=== PATIENT | male | born 1945 | race Caucasian/White ===

== ENCOUNTER 2023-02-22 02:55 | Inpatient (IN) | payer OTHER ==
[2023-02-22] MEDS ORDERED: Ipratropium/Albuterol 3 ML NEB ONE (03:34)
[2023-02-22 04:03] LABS: Bilirubin Neg (Negative); Blood, Urine 25 (Negative); Clarity Clear (Clear); Glucose, Urine (Dipstick) >=1000 mg/dL (Negative); Ketone, Urine Negative (Negative); Leukocyte Negative (Negative); Nitrite Negative (Negative); Protein, Urine (Dipstick) 100 mg/dl (Neg-Trace); Urobilinogen Normal mg/dL (Less than 2); pH, Urine 6.5 (5.0-9.0)
[2023-02-22 04:31] LABS: Bacteria/HPF Rare-Few HPF (None Seen); CAUTI Indications for Culture Alt mental st,lethar; Squamous Epithelial 0-3 HPF (0-3)
[2023-02-22 04:37] LABS: Urine Culture Reflex No No
[2023-02-22] MEDS ORDERED: dilTIAZem 25 MG/5 ML VIAL ONE ×2 (04:42→05:53)
[2023-02-22 04:44] LABS: Actual Bicarbonate (HCO3a) 21.8 mEq/L (22-28); Base Excess (BEa) -7.6 mEq/L (-2.0 to +3.0); CO2 Tension 61.6 mmHg (35.0-45.0); Calcium, Ionized (arterial) 1.15 mmol/L (1.12-1.30); Carboxyhemoglobin (COHb) 0.6 gm% (0.0-3.0); Critical Notified By: CP.PH; Hematocrit-ABG 41 % (42.0-52.0); Hemoglobin (Hb) 13.9 g/dL (14.0-18.0); O2 Tension (PaO2), arterial 109.7 mmHg (> 70.0); Potassium - ABG Lab 4.04 mmol/L (3.70-5.30); Puncture Site LRA; RapidComm Collect By CP.PH; pH, Arterial 7.167 (7.35-7.45)
[2023-02-22 04:49] LABS: #Basophils 0.1 10x3/uL (0.0-0.2); #Monocytes 1.3 10x3/uL (0.0-1.1); #Neutrophils 19.7 10x3/uL (1.5-8.4); %Basophils 0.3 % (0.0-2.0); %Lymphocytes 7.2 % (18.0-47.0); %Monocytes 5.7 % (0.0-10.0); %Neutrophils 86.2 % (40.0-75.0); Hematocrit 42.2 % (38.8-50.0); Hemoglobin 13.2 g/dL (13.5-17.5); Mean Corpuscular HGB CONC 31.3 g/dL (32.0-36.0); Mean Corpuscular Hemoglobin 29.3 pg (27.0-33.0); Mean Corpuscular Volume 93.8 fl (81.2-95.1); Mean Platelet Volume 11.3 fl (7.4-10.4); Platelet Count 400 10x3/uL (150-450); RBC Distribution Width 12.7 % (11.5-14.5); White Blood Cell (WBC) Count 22.9 10x3/uL (3.5-10.5)
[2023-02-22 05:07] LABS: ALT (SGPT) 21 U/L (8-55); AST (SGOT) 39 U/L (5-34); Albumin 3.5 g/dL (3.4-4.8); Alkaline Phosphatase 86 U/L (40-110); Anion Gap 18 mmol/L (10-20); BUN (Urea Nitrogen) 21 mg/dL (8.4-25.7); Bilirubin, Total 0.3 mg/dL (0.2-1.2); Calc. Creatinine Clearance 0 mL/min (70-130); Calcium 8.2 mg/dL (7.8-10.44); Carbon Dioxide 20 mmol/L (23-31); Chloride 108 mmol/L (98-107); Estimated GFR 46; Globulin 3.4 g/dL (2.4-3.5); Glucose 389 mg/dL (83-110); Magnesium 2.8 mg/dL (1.6-2.6); Potassium 4.5 mmol/L (3.5-5.1); Protein, Total 6.9 g/dL (5.8-8.1); Sodium 141 mmol/L (136-145)
[2023-02-22] MEDS ORDERED: Cefepime 2 GM VIAL ONE (05:07)
[2023-02-22] MEDS ORDERED: Vancomycin 1 GM VIAL ONE (05:07)
[2023-02-22 05:11] LABS: SARS-CoV-2 NAA Rapid Test Not Detected (NotDetected)
[2023-02-22 05:13] LABS: Troponin I 0.284 ng/mL (< 0.028)
[2023-02-22] MEDS ORDERED: Vancomycin HCl 750 MG in Sodium Chloride 0.9% 250 ML 250 ML IVPB SCH (06:00)
[2023-02-22] MEDS ORDERED: dilTIAZem 125 MG in Sodium Chloride 0.9% 100 ML IVPB SCH (06:00)
[2023-02-22] MEDS ORDERED: Communication Order-Pharmacy FS ONE (06:25)
[2023-02-22] MEDS ORDERED: NOREPINEPHRINE 8 MG/250 ML-D5W 250 ML IVPB SCH (06:30)
[2023-02-22] MEDS ORDERED: Dextrose 5% in Water 1,000 ML IV PRN (06:35)
[2023-02-22] MEDS ORDERED: Glucagon 1 MG/ML KIT IM PRN (06:35)
[2023-02-22] MEDS ORDERED: Dextrose 50% Abboject 50 ML SYRINGE SLOW IVP PRN (06:35)
[2023-02-22 06:42] LABS: Actual Bicarbonate (HCO3a) 19.8 mEq/L (22-28); Base Excess (BEa) -9.8 mEq/L (-2.0 to +3.0); Calcium, Ionized (arterial) 1.15 mmol/L (1.12-1.30); Carboxyhemoglobin (COHb) 0.2 gm% (0.0-3.0); Critical Notified By: CP.PH; Hematocrit-ABG 39 % (42.0-52.0); Hemoglobin (Hb) 13.4 g/dL (14.0-18.0); O2 Tension (PaO2), arterial 145.8 mmHg (> 70.0); Potassium - ABG Lab 3.63 mmol/L (3.70-5.30); Puncture Site RRA; RapidComm Collect By CP.PH; pH, Arterial 7.136 (7.35-7.45)
[2023-02-22] MEDS ORDERED: dilTIAZem 125 MG, Admixture Fee 1 EACH in Sodium Chloride 0.9% 100 ML IVPB SCH (06:45)
[2023-02-22 07:28] LABS: Hematocrit 40.3 % (38.8-50.0); Hemoglobin 12.6 g/dL (13.5-17.5); Mean Corpuscular HGB CONC 31.3 g/dL (32.0-36.0); Mean Corpuscular Hemoglobin 30.2 pg (27.0-33.0); Mean Corpuscular Volume 96.6 fl (81.2-95.1); Mean Platelet Volume 11.5 fl (7.4-10.4); Platelet Count 351 10x3/uL (150-450); RBC Distribution Width 12.8 % (11.5-14.5); Red Blood Cell (RBC) Count 4.17 10x6/uL (4.32-5.72); White Blood Cell (WBC) Count 18.4 10x3/uL (3.5-10.5)
[2023-02-22 07:39] LABS: INR-International Normal Ratio 1.3; Prothrombin Time 14.1 sec (9.5-12.1)
[2023-02-22 07:41] LABS: Lactic Acid 4.2 mmol/L (0.5-2.2)
[2023-02-22 07:46] LABS: ALT (SGPT) 20 U/L (8-55); AST (SGOT) 47 U/L (5-34); Albumin 3.2 g/dL (3.4-4.8); Alkaline Phosphatase 85 U/L (40-110); Anion Gap 18 mmol/L (10-20); BUN (Urea Nitrogen) 20 mg/dL (8.4-25.7); Bilirubin, Total 0.2 mg/dL (0.2-1.2); Calc. Creatinine Clearance 0 mL/min (70-130); Carbon Dioxide 14 mmol/L (23-31); Chloride 113 mmol/L (98-107); Estimated GFR 48; Globulin 3.6 g/dL (2.4-3.5); Glucose 392 mg/dL (83-110); Potassium 3.9 mmol/L (3.5-5.1); Protein, Total 6.8 g/dL (5.8-8.1); Sodium 141 mmol/L (136-145)
[2023-02-22 07:55] LABS: Troponin I 1.081 ng/mL (< 0.028)
[2023-02-22] MEDS ORDERED: Propofol 1,000 MG/100 ML VIAL IV ONE (08:01)
[2023-02-22] MEDS: Propofol 1,000 MG/100 ML VIAL IV PRN (08:08)
[2023-02-22] MEDS ORDERED: FENTANYL 2,000MCG/100-0.9%NACL 100 ML IVPB SCH (08:15)
[2023-02-22] MEDS ORDERED: Propofol BOLUS 1,000 MG/100 ML VIAL IV PRN (08:15)
[2023-02-22] MEDS ORDERED: DISCONTINUE PREVIOUS NARCOTIC PAIN MEDICATIONS AND BENZODIAZEPINES FS SCH (08:15)
[2023-02-22] MEDS ORDERED: Lorazepam 2 MG/ML VIAL SLOW IVP PRN (08:15)
[2023-02-22] MEDS ORDERED: Morphine 2 MG/ML VIAL SLOW IVP PRN (08:15)
[2023-02-22] MEDS ORDERED: Fentanyl BOLUS 250 ML IVPB PRN (08:15)
[2023-02-22] MEDS: Lactated Ringer's 1,000 ML IV SCH ×2 (08:31→08:37)
[2023-02-22 08:32] LABS: MDiff Complete? YES
[2023-02-22] MEDS: Pantoprazole 40 MG VIAL IVP SCH (08:38)
[2023-02-22 08:41] LABS: Lymphocytes 3 % (21-51); Monocytes 3 % (0-10); Neutrophil 94 % (42-75)
[2023-02-22 08:43] LABS: Macrocytosis SLIGHT = 6-15 cells (100X) (0-5/hpf)
[2023-02-22 08:44] LABS: Platelet Adequacy Comment Appears Adequate
[2023-02-22] MEDS ORDERED: methylPREDNISolone Sod Succ 40 MG VIAL IVP SCH (09:00)
[2023-02-22] MEDS ORDERED: Arformoterol 15 MCG/2 ML NEB NEB SCH ×2 (09:00→18:30)
[2023-02-22] MEDS ORDERED: Ipratropium/Albuterol 3 ML NEB NEB SCH (10:30)
[2023-02-22 10:31] LABS: Troponin I 2.903 ng/mL (< 0.028)
[2023-02-22 10:42] LABS: Legionella Urinary Ag Negative (Negative); Strep pneumo Urine Ag NEGATIVE (NEGATIVE)
[2023-02-22] MEDS ORDERED: Insulin Regular 300 UNITS/3 ML VIAL SC SCH (11:00)
[2023-02-22] MEDS: LevoFLOXacin 750 mg/D5W 750 MG in Premix 1 BAG IVPB SCH (11:07)
[2023-02-22 11:37] LABS: Actual Bicarbonate (HCO3a) 14.4 mEq/L (22-28); Base Excess (BEa) -13.4 mEq/L (-2.0 to +3.0); CO2 Tension 40.3 mmHg (35.0-45.0); Calcium, Ionized (arterial) 1.15 mmol/L (1.12-1.30); Carboxyhemoglobin (COHb) 0.3 gm% (0.0-3.0); Hematocrit-ABG 36 % (42.0-52.0); Hemoglobin (Hb) 12.4 g/dL (14.0-18.0); O2 Tension (PaO2), arterial 211.2 mmHg (> 70.0); Potassium - ABG Lab 3.78 mmol/L (3.70-5.30); Puncture Site RRA; pH, Arterial 7.171 (7.35-7.45)
[2023-02-22 11:40] LABS: ALV-art Gradient 237.525 mmHg (0-20)
[2023-02-22 12:46] LABS: Troponin I 3.816 ng/mL (< 0.028)
[2023-02-22] MEDS ORDERED: Sodium Bicarbonate 150 MEQ, Admixture Fee 1 EACH in Dextrose 5% in Water 1,000 ML IV SCH ×2 (13:00)
[2023-02-22] MEDS ORDERED: Lantus 1000 UNITS/10 ML VIAL SC SCH (13:00)
[2023-02-22] MEDS: Ipratropium Bromide 2.5 ml Neb NEB SCH ×2 (13:45→19:32)
[2023-02-22] MEDS ORDERED: Cefepime 2 GM in Sodium Chloride 0.9% 100 ML IVPB SCH (14:00)
[2023-02-22] MEDS: Cefepime 2 GM in Sodium Chloride 0.9% 100 ML IVPB SCH (16:17)
[2023-02-22] MEDS: HumaLOG 300 UNITS/3 ML VIAL SC PRN ×2 (16:17→21:41)
[2023-02-23] MEDS: Propofol 1,000 MG/100 ML VIAL IV PRN (00:35)
[2023-02-23] MEDS: HumaLOG 300 UNITS/3 ML VIAL SC PRN ×3 (01:08→12:35)
[2023-02-23] MEDS: Ipratropium Bromide 2.5 ml Neb NEB SCH ×7 (02:15→23:10)
[2023-02-23 03:22] LABS: Hematocrit 31.9 % (38.8-50.0); Hemoglobin 10.2 g/dL (13.5-17.5); Mean Corpuscular Hemoglobin 29.7 pg (27.0-33.0); Mean Corpuscular Volume 92.7 fl (81.2-95.1); Mean Platelet Volume 12.2 fl (7.4-10.4); Platelet Count 312 10x3/uL (150-450); RBC Distribution Width 13.2 % (11.5-14.5); Red Blood Cell (RBC) Count 3.44 10x6/uL (4.32-5.72); White Blood Cell (WBC) Count 25.9 10x3/uL (3.5-10.5)
[2023-02-23 03:25] LABS: MDiff Complete? YES
[2023-02-23 03:41] LABS: Lactic Acid 2.1 mmol/L (0.5-2.2)
[2023-02-23 03:42] LABS: Platelet Adequacy Comment Appears Adequate; RBC Morph Comment Within Normal Limits
[2023-02-23 03:46] LABS: Band 10 % (5-11); Lymphocytes 5 % (21-51); Monocytes 10 % (0-10); Neutrophil 75 % (42-75)
[2023-02-23 03:49] LABS: ALT (SGPT) 26 U/L (8-55); AST (SGOT) 76 U/L (5-34); Albumin 3.1 g/dL (3.4-4.8); Alkaline Phosphatase 63 U/L (40-110); Anion Gap 14 mmol/L (10-20); BUN (Urea Nitrogen) 33 mg/dL (8.4-25.7); Bilirubin, Total 0.2 mg/dL (0.2-1.2); Calc. Creatinine Clearance 42 mL/min (70-130); Calcium 8.8 mg/dL (7.8-10.44); Carbon Dioxide 23 mmol/L (23-31); Chloride 111 mmol/L (98-107); Estimated GFR 35; Globulin 3.2 g/dL (2.4-3.5); Glucose 161 mg/dL (83-110); Potassium 3.7 mmol/L (3.5-5.1); Protein, Total 6.3 g/dL (5.8-8.1); Sodium 144 mmol/L (136-145)
[2023-02-23 04:32] LABS: Actual Bicarbonate (HCO3a) 25.7 mEq/L (22-28); Calcium, Ionized (arterial) 1.22 mmol/L (1.12-1.30); Carboxyhemoglobin (COHb) 0.3 gm% (0.0-3.0); Critical Notified By: Udy, RRT; Hematocrit-ABG 34 % (42.0-52.0); Hemoglobin (Hb) 11.5 g/dL (14.0-18.0); O2 Tension (PaO2), arterial 220.9 mmHg (> 70.0); Puncture Site LRA
[2023-02-23] MEDS: Cefepime 2 GM in Sodium Chloride 0.9% 100 ML IVPB SCH (05:54)
[2023-02-23] MEDS: VANCOMYCIN 1.25 GM/250 ML BAG 1.25 GM in Premix 1 BAG IVPB SCH (05:55)
[2023-02-23] MEDS ORDERED: Vancomycin 1.25 GM in Sodium Chloride 0.9% 250 ML 300 ML IVPB SCH (06:30)
[2023-02-23] MEDS ORDERED: Lactated Ringer's 1,000 ML IV SCH (08:00)
[2023-02-23] MEDS ORDERED: Aspirin Chewable 81 MG TAB PO SCH (08:00)
[2023-02-23] MEDS ORDERED: Carvedilol 3.125 MG TAB PO SCH (08:00)
[2023-02-23] MEDS: Pantoprazole 40 MG VIAL IVP SCH (08:23)
[2023-02-23 08:49] LABS: Troponin I 6.681 ng/mL (< 0.028)
[2023-02-23] MEDS: Lactated Ringer's 1,000 ML IV SCH ×2 (08:56→16:10)
[2023-02-23] MEDS: clonazePAM 0.5 MG TAB PO SCH ×2 (08:56→20:01)
[2023-02-23 10:33] LABS: ALV-art Gradient 141.275 mmHg (0-20); Actual Bicarbonate (HCO3a) 26.1 mEq/L (22-28); Base Excess (BEa) 0.3 mEq/L (-2.0 to +3.0); CO2 Tension 46.9 mmHg (35.0-45.0); Calcium, Ionized (arterial) 1.22 mmol/L (1.12-1.30); Carboxyhemoglobin (COHb) 0.3 gm% (0.0-3.0); Hematocrit-ABG 35 % (42.0-52.0); Hemoglobin (Hb) 11.8 g/dL (14.0-18.0); O2 Tension (PaO2), arterial 85.3 mmHg (> 70.0); Potassium - ABG Lab 4.08 mmol/L (3.70-5.30); Puncture Site LRA; pH, Arterial 7.363 (7.35-7.45)
[2023-02-23] MEDS ORDERED: Ipratropium/Albuterol 3 ML NEB EZPAP SCH (11:00)
[2023-02-23] MEDS ORDERED: Vancomycin Dose by Levels Sliding Scale (Wt 71-99) FS SCH (14:00)
[2023-02-23] MEDS: Cefepime 1 GM in Sodium Chloride 0.9% 100 ML IVPB SCH (16:10)
[2023-02-23] MEDS: Metoprolol Tartrate 50 MG TAB PO SCH (20:01)
[2023-02-23] MEDS: Atorvastatin Calcium 10 MG TAB PO SCH (20:01)
[2023-02-23] MEDS: Melatonin 3 MG TAB PO SCH (20:01)
[2023-02-23] MEDS: Nitroglycerin 2% Ointment 1 INCH/1 GM Packet TOP SCH (20:18)
[2023-02-24] MEDS: Lactated Ringer's 1,000 ML IV SCH (00:33)
[2023-02-24] MEDS: Ipratropium Bromide 2.5 ml Neb NEB SCH ×6 (03:31→23:15)
[2023-02-24 03:48] LABS: ALV-art Gradient 152.825 mmHg (0-20); Actual Bicarbonate (HCO3a) 23.9 mEq/L (22-28); Base Excess (BEa) -1.8 mEq/L (-2.0 to +3.0); CO2 Tension 44.3 mmHg (35.0-45.0); Calcium, Ionized (arterial) 1.24 mmol/L (1.12-1.30); Carboxyhemoglobin (COHb) 0.3 gm% (0.0-3.0); Hematocrit-ABG 32 % (42.0-52.0); Hemoglobin (Hb) 10.9 g/dL (14.0-18.0); Potassium - ABG Lab 4.22 mmol/L (3.70-5.30); Puncture Site LRA; pH, Arterial 7.349 (7.35-7.45)
[2023-02-24] MEDS: Cefepime 1 GM in Sodium Chloride 0.9% 100 ML IVPB SCH ×2 (04:28→16:12)
[2023-02-24 05:24] LABS: #Monocytes 1.7 10x3/uL (0.0-1.1); #Neutrophils 14.8 10x3/uL (1.5-8.4); %Basophils 0.2 % (0.0-2.0); %Lymphocytes 10.5 % (18.0-47.0); %Monocytes 9.1 % (0.0-10.0); %Neutrophils 79.4 % (40.0-75.0); Hematocrit 31.6 % (38.8-50.0); Hemoglobin 9.9 g/dL (13.5-17.5); Mean Corpuscular HGB CONC 31.3 g/dL (32.0-36.0); Mean Corpuscular Hemoglobin 29.9 pg (27.0-33.0); Mean Corpuscular Volume 95.5 fl (81.2-95.1); Mean Platelet Volume 11.5 fl (7.4-10.4); Platelet Count 289 10x3/uL (150-450); RBC Distribution Width 13.6 % (11.5-14.5); Red Blood Cell (RBC) Count 3.31 10x6/uL (4.32-5.72); White Blood Cell (WBC) Count 18.6 10x3/uL (3.5-10.5)
[2023-02-24 05:39] LABS: Vancomycin, Trough 15.2 ug/mL
[2023-02-24 05:40] LABS: Anion Gap 14 mmol/L (10-20); BUN (Urea Nitrogen) 51 mg/dL (8.4-25.7); Calc. Creatinine Clearance 44 mL/min (70-130); Calcium 8.9 mg/dL (7.8-10.44); Carbon Dioxide 22 mmol/L (23-31); Chloride 112 mmol/L (98-107); Estimated GFR 37; Glucose 144 mg/dL (83-110); Potassium 4.3 mmol/L (3.5-5.1); Sodium 144 mmol/L (136-145)
[2023-02-24] MEDS: VANCOMYCIN 1.25 GM/250 ML BAG 1.25 GM in Premix 1 BAG IVPB SCH (06:07)
[2023-02-24] MEDS: Nitroglycerin 2% Ointment 1 INCH/1 GM Packet TOP SCH ×2 (08:16→21:38)
[2023-02-24] MEDS: Pantoprazole 40 MG VIAL IVP SCH (08:16)
[2023-02-24] MEDS: Metoprolol Tartrate 50 MG TAB PO SCH ×2 (08:17→21:38)
[2023-02-24] MEDS: Aspirin Chewable 81 MG TAB PO SCH (08:17)
[2023-02-24 09:07] LABS: Actual Bicarbonate (HCO3a) 20.5 mEq/L (22-28); CO2 Tension 39.5 mmHg (35.0-45.0); Calcium, Ionized (arterial) 1.25 mmol/L (1.12-1.30); Carboxyhemoglobin (COHb) 0.3 gm% (0.0-3.0); Hematocrit-ABG 37 % (42.0-52.0); Hemoglobin (Hb) 12.5 g/dL (14.0-18.0); O2 Tension (PaO2), arterial 69.1 mmHg (> 70.0); Potassium - ABG Lab 4.16 mmol/L (3.70-5.30); Puncture Site RRA; pH, Arterial 7.332 (7.35-7.45)
[2023-02-24 09:10] LABS: ALV-art Gradient 166.725 mmHg (0-20)
[2023-02-24 09:38] LABS: Troponin I 11.475 ng/mL (< 0.028)
[2023-02-24] MEDS ORDERED: Furosemide 100 MG/10 ML VIAL SLOW IVP SCH (10:00)
[2023-02-24] MEDS: LevoFLOXacin 750 mg/D5W 750 MG in Premix 1 BAG IVPB SCH (10:28)
[2023-02-24] MEDS: clonazePAM 0.5 MG TAB PO SCH (10:28)
[2023-02-24] MEDS ORDERED: Furosemide 40 MG/4 ML VIAL SLOW IVP SCH ×2 (17:30→17:45)
[2023-02-24] MEDS ORDERED: Potassium Chloride 20 MEQ TAB PO SCH (17:45)
[2023-02-24] MEDS: Melatonin 3 MG TAB PO SCH (21:37)
[2023-02-24] MEDS: Atorvastatin Calcium 10 MG TAB PO SCH (21:38)
[2023-02-25] MEDS: HumaLOG 300 UNITS/3 ML VIAL SC PRN (00:43)
[2023-02-25] MEDS: Ipratropium Bromide 2.5 ml Neb NEB SCH ×6 (03:45→23:35)
[2023-02-25 04:18] LABS: Anion Gap 16 mmol/L (10-20); BUN (Urea Nitrogen) 49 mg/dL (8.4-25.7); Calc. Creatinine Clearance 52 mL/min (70-130); Calcium 9.7 mg/dL (7.8-10.44); Carbon Dioxide 28 mmol/L (23-31); Chloride 102 mmol/L (98-107); Estimated GFR 44; Glucose 132 mg/dL (83-110); Potassium 3.7 mmol/L (3.5-5.1); Sodium 142 mmol/L (136-145)
[2023-02-25 04:27] LABS: #Monocytes 1.4 10x3/uL (0.0-1.1); #Neutrophils 12.7 10x3/uL (1.5-8.4); %Basophils 0.1 % (0.0-2.0); %Eosinophils 0.2 % (0.0-6.0); %Lymphocytes 10.8 % (18.0-47.0); %Monocytes 8.6 % (0.0-10.0); %Neutrophils 79.7 % (40.0-75.0); Hematocrit 34.3 % (38.8-50.0); Mean Corpuscular HGB CONC 32.1 g/dL (32.0-36.0); Mean Corpuscular Hemoglobin 29.6 pg (27.0-33.0); Mean Corpuscular Volume 92.5 fl (81.2-95.1); Platelet Count 304 10x3/uL (150-450); RBC Distribution Width 13.2 % (11.5-14.5); Red Blood Cell (RBC) Count 3.71 10x6/uL (4.32-5.72)
[2023-02-25] MEDS: Cefepime 1 GM in Sodium Chloride 0.9% 100 ML IVPB SCH (06:16)
[2023-02-25] MEDS: Metoprolol Tartrate 50 MG TAB PO SCH ×2 (07:57→20:44)
[2023-02-25] MEDS: Aspirin Chewable 81 MG TAB PO SCH (07:57)
[2023-02-25] MEDS: Nitroglycerin 2% Ointment 1 INCH/1 GM Packet TOP SCH ×2 (07:59→20:44)
[2023-02-25] MEDS: Pantoprazole 40 MG VIAL IVP SCH (08:01)
[2023-02-25] MEDS: Apixaban 5 MG TAB PO SCH (20:44)
[2023-02-25] MEDS: Atorvastatin Calcium 10 MG TAB PO SCH (20:45)
[2023-02-25] MEDS: Melatonin 3 MG TAB PO SCH (20:45)
[2023-02-26] MEDS: HumaLOG 300 UNITS/3 ML VIAL SC PRN (00:43)
[2023-02-26 03:03] LABS: #Monocytes 1.2 10x3/uL (0.0-1.1); #Neutrophils 11.5 10x3/uL (1.5-8.4); %Basophils 0.1 % (0.0-2.0); %Eosinophils 0.3 % (0.0-6.0); %Monocytes 8.6 % (0.0-10.0); %Neutrophils 83.6 % (40.0-75.0); Hematocrit 37.4 % (38.8-50.0); Hemoglobin 11.7 g/dL (13.5-17.5); Mean Corpuscular HGB CONC 31.3 g/dL (32.0-36.0); Mean Corpuscular Volume 92.8 fl (81.2-95.1); Mean Platelet Volume 12.1 fl (7.4-10.4); Platelet Count 300 10x3/uL (150-450); RBC Distribution Width 12.8 % (11.5-14.5); Red Blood Cell (RBC) Count 4.03 10x6/uL (4.32-5.72); White Blood Cell (WBC) Count 13.8 10x3/uL (3.5-10.5)
[2023-02-26 03:15] LABS: Anion Gap 15 mmol/L (10-20); BUN (Urea Nitrogen) 45 mg/dL (8.4-25.7); Calc. Creatinine Clearance 65 mL/min (70-130); Calcium 9.9 mg/dL (7.8-10.44); Carbon Dioxide 28 mmol/L (23-31); Chloride 103 mmol/L (98-107); Estimated GFR 65; Glucose 159 mg/dL (83-110); Magnesium 2.1 mg/dL (1.6-2.6); Potassium 4.1 mmol/L (3.5-5.1); Sodium 142 mmol/L (136-145)
[2023-02-26] MEDS: Ipratropium Bromide 2.5 ml Neb NEB SCH ×5 (04:05→19:59)
[2023-02-26] MEDS: Aspirin Chewable 81 MG TAB PO SCH (08:43)
[2023-02-26] MEDS: Metoprolol Tartrate 50 MG TAB PO SCH ×2 (08:43→20:28)
[2023-02-26] MEDS: Apixaban 5 MG TAB PO SCH (08:43)
[2023-02-26] MEDS: Nitroglycerin 2% Ointment 1 INCH/1 GM Packet TOP SCH ×2 (08:44→20:29)
[2023-02-26] MEDS: LevoFLOXacin 750 MG TAB PO SCH (08:54)
[2023-02-26] MEDS ORDERED: Furosemide 40 MG/4 ML VIAL SLOW IVP SCH (12:30)
[2023-02-26] MEDS: Melatonin 3 MG TAB PO SCH (20:26)
[2023-02-26] MEDS: Atorvastatin Calcium 10 MG TAB PO SCH (20:28)
[2023-02-26] MEDS: Docusate 100 MG CAP PO SCH (22:06)
[2023-02-27] MEDS: Ipratropium Bromide 2.5 ml Neb NEB SCH ×6 (00:53→19:43)
[2023-02-27 05:58] LABS: #Eosinphils 0.1 10x3/uL (0.0-0.5); #Monocytes 1.3 10x3/uL (0.0-1.1); #Neutrophils 8.7 10x3/uL (1.5-8.4); %Basophils 0.2 % (0.0-2.0); %Eosinophils 0.7 % (0.0-6.0); %Lymphocytes 10.6 % (18.0-47.0); %Monocytes 11.6 % (0.0-10.0); %Neutrophils 76.5 % (40.0-75.0); Hematocrit 39.3 % (38.8-50.0); Hemoglobin 12.6 g/dL (13.5-17.5); Mean Corpuscular HGB CONC 32.1 g/dL (32.0-36.0); Mean Corpuscular Hemoglobin 29.6 pg (27.0-33.0); Mean Corpuscular Volume 92.3 fl (81.2-95.1); Platelet Count 321 10x3/uL (150-450); RBC Distribution Width 12.6 % (11.5-14.5); Red Blood Cell (RBC) Count 4.26 10x6/uL (4.32-5.72); White Blood Cell (WBC) Count 11.4 10x3/uL (3.5-10.5)
[2023-02-27 06:03] LABS: Anion Gap 16 mmol/L (10-20); BUN (Urea Nitrogen) 40 mg/dL (8.4-25.7); Calc. Creatinine Clearance 61 mL/min (70-130); Calcium 9.9 mg/dL (7.8-10.44); Carbon Dioxide 31 mmol/L (23-31); Chloride 97 mmol/L (98-107); Estimated GFR 59; Glucose 195 mg/dL (83-110); Potassium 3.4 mmol/L (3.5-5.1); Sodium 141 mmol/L (136-145)
[2023-02-27] MEDS: Nitroglycerin 2% Ointment 1 INCH/1 GM Packet TOP SCH ×2 (07:42→20:30)
[2023-02-27] MEDS: LevoFLOXacin 750 MG TAB PO SCH (07:43)
[2023-02-27] MEDS: Metoprolol Tartrate 50 MG TAB PO SCH ×2 (07:43→20:30)
[2023-02-27] MEDS: Docusate 100 MG CAP PO SCH ×2 (07:43→20:30)
[2023-02-27] MEDS: Aspirin Chewable 81 MG TAB PO SCH (07:43)
[2023-02-27] MEDS: HumaLOG 300 UNITS/3 ML VIAL SC PRN ×2 (11:58→21:14)
[2023-02-27] MEDS ORDERED: Potassium Chloride 20 MEQ TAB PO SCH (12:00)
[2023-02-27] MEDS: Atorvastatin Calcium 10 MG TAB PO SCH (20:30)
[2023-02-27] MEDS: Melatonin 3 MG TAB PO SCH (20:30)
[2023-02-28] MEDS: Ipratropium Bromide 2.5 ml Neb NEB SCH ×7 (00:40→23:00)
[2023-02-28] MEDS: Aspirin Chewable 81 MG TAB PO SCH (09:17)
[2023-02-28] MEDS: Metoprolol Tartrate 50 MG TAB PO SCH ×2 (09:17→20:22)
[2023-02-28] MEDS: Docusate 100 MG CAP PO SCH ×2 (09:17→20:24)
[2023-02-28] MEDS: LevoFLOXacin 750 MG TAB PO SCH (09:17)
[2023-02-28] MEDS: Nitroglycerin 2% Ointment 1 INCH/1 GM Packet TOP SCH ×2 (09:20→20:22)
[2023-02-28 11:50] LABS: #Eosinphils 0.3 10x3/uL (0.0-0.5); #Monocytes 1.4 10x3/uL (0.0-1.1); #Neutrophils 8.3 10x3/uL (1.5-8.4); %Basophils 0.2 % (0.0-2.0); %Eosinophils 2.8 % (0.0-6.0); %Lymphocytes 12.8 % (18.0-47.0); %Neutrophils 71.9 % (40.0-75.0); Hematocrit 35.8 % (38.8-50.0); Hemoglobin 11.2 g/dL (13.5-17.5); Mean Corpuscular HGB CONC 31.3 g/dL (32.0-36.0); Mean Corpuscular Hemoglobin 28.4 pg (27.0-33.0); Mean Corpuscular Volume 90.6 fl (81.2-95.1); Mean Platelet Volume 11.6 fl (7.4-10.4); Platelet Count 356 10x3/uL (150-450); RBC Distribution Width 12.6 % (11.5-14.5); Red Blood Cell (RBC) Count 3.95 10x6/uL (4.32-5.72); White Blood Cell (WBC) Count 11.6 10x3/uL (3.5-10.5)
[2023-02-28 12:00] LABS: Anion Gap 13 mmol/L (10-20); BUN (Urea Nitrogen) 34 mg/dL (8.4-25.7); Calc. Creatinine Clearance 70 mL/min (70-130); Calcium 9.1 mg/dL (7.8-10.44); Carbon Dioxide 28 mmol/L (23-31); Chloride 100 mmol/L (98-107); Estimated GFR 72; Glucose 271 mg/dL (83-110); Magnesium 2.1 mg/dL (1.6-2.6); Potassium 3.6 mmol/L (3.5-5.1); Sodium 137 mmol/L (136-145)
[2023-02-28] MEDS ORDERED: Lantus 1000 UNITS/10 ML VIAL SC SCH (12:00)
[2023-02-28] MEDS: HumaLOG 300 UNITS/3 ML VIAL SC PRN (17:30)
[2023-02-28] MEDS: Atorvastatin Calcium 10 MG TAB PO SCH (20:22)
[2023-02-28] MEDS: Melatonin 3 MG TAB PO SCH (20:22)
[2023-02-28] MEDS: Lactated Ringer's 1,000 ML IV SCH (21:42)
[2023-03-01] MEDS ORDERED: Communication Order-Pharmacy FS SCH (01:00)
[2023-03-01] MEDS: Ipratropium Bromide 2.5 ml Neb NEB SCH ×5 (03:00→19:32)
[2023-03-01 07:09] LABS: #Eosinphils 0.5 10x3/uL (0.0-0.5); #Monocytes 1.4 10x3/uL (0.0-1.1); #Neutrophils 6.9 10x3/uL (1.5-8.4); %Basophils 0.4 % (0.0-2.0); %Eosinophils 4.9 % (0.0-6.0); %Lymphocytes 13.4 % (18.0-47.0); %Monocytes 13.3 % (0.0-10.0); %Neutrophils 67.5 % (40.0-75.0); Hematocrit 37.7 % (38.8-50.0); Hemoglobin 11.7 g/dL (13.5-17.5); Mean Corpuscular Hemoglobin 28.4 pg (27.0-33.0); Mean Corpuscular Volume 91.5 fl (81.2-95.1); Mean Platelet Volume 11.6 fl (7.4-10.4); Platelet Count 349 10x3/uL (150-450); RBC Distribution Width 12.7 % (11.5-14.5); Red Blood Cell (RBC) Count 4.12 10x6/uL (4.32-5.72); White Blood Cell (WBC) Count 10.3 10x3/uL (3.5-10.5)
[2023-03-01 07:37] LABS: Anion Gap 16 mmol/L (10-20); BUN (Urea Nitrogen) 31 mg/dL (8.4-25.7); Calc. Creatinine Clearance 64 mL/min (70-130); Calcium 9.3 mg/dL (7.8-10.44); Carbon Dioxide 26 mmol/L (23-31); Chloride 101 mmol/L (98-107); Estimated GFR 65; Glucose 180 mg/dL (83-110); Potassium 3.8 mmol/L (3.5-5.1); Sodium 139 mmol/L (136-145)
[2023-03-01] MEDS ORDERED: Nitroglycerin 50 MG/250 ML BOT 250 ML ONE (07:47)
[2023-03-01] MEDS ORDERED: Adenosine 6 MG/2 ML VIAL ONE (07:48)
[2023-03-01] MEDS ORDERED: Midazolam HCl 2 mg/2 ml Vial ONE (07:48)
[2023-03-01] MEDS ORDERED: Lidocaine 1% (PF) 30 ML VIAL ONE (07:48)
[2023-03-01] MEDS ORDERED: fentaNYL 50 mcg/mL 1 mL Vial ONE ×2 (07:48→10:04)
[2023-03-01] MEDS ORDERED: Bivalirudin 250 MG VIAL ONE (07:48)
[2023-03-01] MEDS ORDERED: Iopamidol 300 61% 100 ML VIAL FS ONE (09:07)
[2023-03-01] MEDS ORDERED: TICAGRELOR 90 MG TABLET ONE (09:26)
[2023-03-01] MEDS ORDERED: Aspirin Chewable 81 MG TAB ONE (09:30)
[2023-03-01] MEDS ORDERED: Sodium Chloride 0.9% 1,000 ML IV SCH ×2 (11:00→11:03)
[2023-03-01] MEDS: Aspirin Chewable 81 MG TAB PO SCH (13:39)
[2023-03-01] MEDS: Docusate 100 MG CAP PO SCH ×2 (13:39→22:48)
[2023-03-01] MEDS: Nitroglycerin 2% Ointment 1 INCH/1 GM Packet TOP SCH ×2 (13:40→22:49)
[2023-03-01] MEDS: Lantus 1000 UNITS/10 ML VIAL SC SCH (13:40)
[2023-03-01] MEDS: LevoFLOXacin 750 MG TAB PO SCH (13:55)
[2023-03-01] MEDS: Metoprolol Tartrate 50 MG TAB PO SCH ×2 (13:55→22:48)
[2023-03-01] MEDS: Melatonin 3 MG TAB PO SCH (22:47)
[2023-03-01] MEDS: Atorvastatin Calcium 10 MG TAB PO SCH (22:47)
[2023-03-01] MEDS: TICAGRELOR 90 MG TABLET PO SCH (22:49)
[2023-03-01] MEDS: HumaLOG 300 UNITS/3 ML VIAL SC PRN (22:51)
[2023-03-02] MEDS: Ipratropium Bromide 2.5 ml Neb NEB SCH ×4 (00:43→12:30)
[2023-03-02 06:40] LABS: #Eosinphils 0.4 10x3/uL (0.0-0.5); #Monocytes 1.2 10x3/uL (0.0-1.1); #Neutrophils 7.3 10x3/uL (1.5-8.4); %Basophils 0.3 % (0.0-2.0); %Eosinophils 3.9 % (0.0-6.0); %Lymphocytes 11.5 % (18.0-47.0); %Monocytes 12.1 % (0.0-10.0); %Neutrophils 71.6 % (40.0-75.0); Hematocrit 34.6 % (38.8-50.0); Mean Corpuscular HGB CONC 31.8 g/dL (32.0-36.0); Mean Corpuscular Hemoglobin 28.8 pg (27.0-33.0); Mean Corpuscular Volume 90.6 fl (81.2-95.1); Mean Platelet Volume 11.4 fl (7.4-10.4); Platelet Count 355 10x3/uL (150-450); RBC Distribution Width 12.7 % (11.5-14.5); Red Blood Cell (RBC) Count 3.82 10x6/uL (4.32-5.72); White Blood Cell (WBC) Count 10.1 10x3/uL (3.5-10.5)
[2023-03-02 07:35] LABS: ALT (SGPT) 37 U/L (8-55); AST (SGOT) 50 U/L (5-34); Albumin 2.7 g/dL (3.4-4.8); Alkaline Phosphatase 78 U/L (40-110); Anion Gap 14 mmol/L (10-20); BUN (Urea Nitrogen) 28 mg/dL (8.4-25.7); Bilirubin, Total 0.4 mg/dL (0.2-1.2); Calc. Creatinine Clearance 69 mL/min (70-130); Calcium 8.7 mg/dL (7.8-10.44); Carbon Dioxide 25 mmol/L (23-31); Chloride 103 mmol/L (98-107); Estimated GFR 74; Globulin 3.5 g/dL (2.4-3.5); Glucose 144 mg/dL (83-110); Potassium 3.6 mmol/L (3.5-5.1); Protein, Total 6.2 g/dL (5.8-8.1); Sodium 138 mmol/L (136-145)
[2023-03-02] MEDS ORDERED: Potassium Chloride 20 MEQ TAB PO SCH (08:30)
[2023-03-02] MEDS: LevoFLOXacin 750 MG TAB PO SCH (09:05)
[2023-03-02] MEDS: Aspirin Chewable 81 MG TAB PO SCH (09:05)
[2023-03-02] MEDS: Nitroglycerin 2% Ointment 1 INCH/1 GM Packet TOP SCH (09:05)
[2023-03-02] MEDS: Metoprolol Tartrate 50 MG TAB PO SCH (09:05)
[2023-03-02] MEDS: TICAGRELOR 90 MG TABLET PO SCH (09:05)
[2023-03-02] MEDS: Lantus 1000 UNITS/10 ML VIAL SC SCH (09:06)
[2023-03-02] MEDS: Docusate 100 MG CAP PO SCH (09:06)
[2023-03-02 12:10] VITALS: BMI 25.8
[2023-03-02] MEDS: HumaLOG 300 UNITS/3 ML VIAL SC PRN (12:31)
[2023-03-02 12:57] VITALS: BP 136/61; TEMP 99.1
== END 2023-03-02 15:53 | DRG 853 ==
LOC: EEVIPCON 02:55 → SUATTDRO 02:55 → CSHERS 02:55 → CSHIMCU 06:25 → CSHTELE 02-27 15:49
PROVIDERS: ADMIT Internal Medicine; ATTEND Internal Medicine
PROC: 4A133R1 Monitoring of Arterial Saturation, Peripheral, Percutaneous Approach (ICD-10-PCS; 2023-02-22)
PROC: 3E03329 Introduction of Other Anti-infective into Peripheral Vein, Percutaneous Approach (ICD-10-PCS; 2023-02-22)
PROC: 5A1945Z Respiratory Ventilation, 24-96 Consecutive Hours (ICD-10-PCS; 2023-02-22)
PROC: 0BH17EZ Insertion of Endotracheal Airway into Trachea, Via Natural or Artificial Opening (ICD-10-PCS; 2023-02-22)
PROC: 5A09357 Assistance with Respiratory Ventilation, Less than 24 Consecutive Hours, Continuous Positive Airway Pressure (ICD-10-PCS; 2023-02-24)
PROC: 02713FZ Dilation of Coronary Artery, Two Arteries with Three Intraluminal Devices, Percutaneous Approach (ICD-10-PCS; principal; 2023-03-01)
PROC: 4A023N7 Measurement of Cardiac Sampling and Pressure, Left Heart, Percutaneous Approach (ICD-10-PCS; 2023-03-01)
PROC: B2151ZZ Fluoroscopy of Left Heart using Low Osmolar Contrast (ICD-10-PCS; 2023-03-01)
PROC: B2111ZZ Fluoroscopy of Multiple Coronary Arteries using Low Osmolar Contrast (ICD-10-PCS; 2023-03-01)
DX: A41.9 Sepsis, unspecified organism (principal); I21.4 Non-ST elevation (NSTEMI) myocardial infarction; J96.01 Acute respiratory failure with hypoxia; I50.33 Acute on chronic diastolic (congestive) heart failure; J18.9 Pneumonia, unspecified organism; J96.02 Acute respiratory failure with hypercapnia; I25.42 Coronary artery dissection; J44.1 Chronic obstructive pulmonary disease with (acute) exacerbation; E87.20 Acidosis, unspecified; N17.9 Acute kidney failure, unspecified; J81.1 Chronic pulmonary edema; I13.0 Hypertensive heart and chronic kidney disease with heart failure and stage 1 through stage 4 chronic kidney disease, or unspecified chronic kidney disease; I25.10 Atherosclerotic heart disease of native coronary artery without angina pectoris; R65.20 Severe sepsis without septic shock; J44.9 Chronic obstructive pulmonary disease, unspecified; E78.5 Hyperlipidemia, unspecified; T68.XXXA Hypothermia, initial encounter; R79.89 Other specified abnormal findings of blood chemistry; E11.65 Type 2 diabetes mellitus with hyperglycemia; E11.22 Type 2 diabetes mellitus with diabetic chronic kidney disease; I25.9 Chronic ischemic heart disease, unspecified; G47.33 Obstructive sleep apnea (adult) (pediatric); N18.9 Chronic kidney disease, unspecified; F41.9 Anxiety disorder, unspecified; I48.0 Paroxysmal atrial fibrillation; Z11.52 Encounter for screening for COVID-19; K76.1 Chronic passive congestion of liver; Z88.5 Allergy status to narcotic agent; Z88.8 Allergy status to other drugs, medicaments and biological substances; Z79.4 Long term (current) use of insulin; Z89.212 Acquired absence of left upper limb below elbow; Z79.01 Long term (current) use of anticoagulants
CPT/HCPCS: 36415; 36416; 36600; 71045; 80048; 80053; 80202; 81001; 82805; 83605; 83735; 83880; 84145; 84443; 84484; 85025; 85610; 85730; 87040; 87070; 87086; 87205; 87449; 87899; 92928; 92929; 92978; 93005; 93010; 93306; 93458; 93970; 94002; 94003; 94150; 94640; 94644; 94660; 94760; 94762; 96365; 96375; 96376; 99152; 99153; C1725; C1726; C1753; C1760; C1769; C1874; C1887; C1894; C9113; C9600; C9601; J0153; J0583; J0692; J1650; J1815; J1940; J1956; J2001; J2250; J2704; J2920; J3010; J3370; J3490; J7050; J7070; J7120; J7611; J7620; Q9967